=== PATIENT | male | born 1950 | race Caucasian/White ===

== ENCOUNTER → 2017-09-01 09:27 | Outpatient (REF) | payer MEDICARE, SELFPAY ==
[2017-09-01 10:33] LABS: Basophils # 0.1 K/mm3 (0-0.2); Basophils % 1.3 % (0.1-2.0); Eosinophils # 0.4 K/mm3 (0.0-0.4); Eosinophils % 7.2 % (0.1-12.0); Hematocrit 44.4 % (42.0-52.0); Hemoglobin 14.1 g/dL (14.1-18.0); Lymphocytes % 33.3 K/mm3 (10-50); Mean Corpuscular HGB Conc 31.7 g/dL (31.8-35.4); Mean Corpuscular Hemoglobin 30.3 pg (27.0-31.2); Mean Corpuscular Volume 95.6 fl (80-94); Mean Platelet Volume 7.7 fl (7.4-10.4); Monocytes # 0.4 K/mm3 (0.1-1.0); Neutrophils # 3.2 K/mm3 (1.8-7.8); Neutrophils % 52.2 % (37.0-80.0); Platelet Count 371 K/mm3 (142-424); Red Blood Count 4.65 M/mm3 (4.60-6.20); Red Cell Distribution Width 14.3 % (11.5-17.5); White Blood Count 6.1 K/mm3 (4.8-10.8)
[2017-09-01 11:00] LABS: Alanine Aminotransferase 24 U/L (12-78); Albumin Level 3.6 gm/dL (3.4-5.0); Albumin/Globulin Ratio 1.3 (1.1-1.8); Alkaline Phosphatase 86 U/L (46-116); Anion Gap 8.7 mEq/L (5-15); Aspartate Amino Transferase 14 U/L (15-37); Bilirubin,Total 0.5 mg/dL (0.2-1.0); Blood Urea Nitrogen 10 mg/dL (7-18); Calcium 9.2 mg/dL (8.5-10.1); Carbon Dioxide 32 mmol/L (21.0-32.0); Chloride 108 mmol/L (98-107); Cholesterol 153 mg/dL (140-200); Creatinine,Serum 1.05 mg/dL (0.70-1.30); Estimated Glomerular Filt Rate 71 ml/min (>60); Free T4 (Free Thyroxine) 0.81 ng/dl (0.76-1.46); GFR (African American) 86 ML/MIN (>60); Globulin 2.8 gm/dl (1.3-3.2); Glucose 110 mg/dL (74-106); HDL Cholesterol 51 mg/dL (27-67); LDL Cholesterol 86 mg/dL (0-130); Potassium 4.7 mmoL/L (3.5-5.1); Sodium 144 mmol/L (136-145); Thyroid Stimulating Hormone 2.37 uIU/ml (0.358-3.740); Total Protein,Serum 6.4 gm/dL (6.4-8.2); Triglycerides 82 mg/dL (30-200); VLDL Cholesterol 16 mg/dL (0-40)
[2017-09-02 15:23] LABS: PSA, Free 0.43 ng/mL; Prostate Specific Ag 1.9 ng/mL (0.0-4.0)
== END ==
LOC: LAB 09:27
PROVIDERS: Visit Provider Physician Assistant
DX: M06.9 Rheumatoid arthritis, unspecified (principal); E78.5 Hyperlipidemia, unspecified; K21.9 Gastro-esophageal reflux disease without esophagitis; J30.9 Allergic rhinitis, unspecified; Z79.899 Other long term (current) drug therapy
CPT/HCPCS: 80053; 80061; 84153; 84154; 84439; 84443; 85025

== ENCOUNTER → 2018-03-09 09:31 | Outpatient (CLI) | payer MEDICARE, SELFPAY ==
[2018-03-09 09:43] LABS: Basophils % 0.6 % (0.1-2.0); Eosinophils # 0.2 K/mm3 (0.0-0.4); Eosinophils % 2.4 % (0.1-12.0); Hematocrit 44.2 % (42.0-52.0); Hemoglobin 14.6 g/dL (14.1-18.0); Lymphocytes # 2.3 K/mm3 (0.7-4.5); Lymphocytes % 35.5 % (10-50); Mean Corpuscular HGB Conc 32.9 g/dL (31.8-35.4); Mean Corpuscular Hemoglobin 31.4 pg (27.0-31.2); Mean Corpuscular Volume 95.4 fl (80-94); Mean Platelet Volume 7.2 fl (7.4-10.4); Monocytes # 0.4 K/mm3 (0.1-1.0); Monocytes % 6.1 % (1.7-9.3); Neutrophils # 3.6 K/mm3 (1.8-7.8); Neutrophils % 55.3 % (37.0-80.0); Platelet Count 348 K/mm3 (142-424); Red Blood Count 4.63 M/mm3 (4.60-6.20); Red Cell Distribution Width 14.2 % (11.5-17.5); White Blood Count 6.6 K/mm3 (4.8-10.8)
[2018-03-09 10:42] LABS: Alanine Aminotransferase 29 U/L (12-78); Albumin Level 3.6 gm/dL (3.4-5.0); Albumin/Globulin Ratio 1.2 (1.1-1.8); Alkaline Phosphatase 91 U/L (46-116); Anion Gap 11.3 mEq/L (5-15); Aspartate Amino Transferase 17 U/L (15-37); Bilirubin,Total 0.6 mg/dL (0.2-1.0); Blood Urea Nitrogen 9 mg/dL (7-18); Calcium 9.2 mg/dL (8.5-10.1); Carbon Dioxide 31 mmol/L (21.0-32.0); Chloride 105 mmol/L (98-107); Chol/HDL Ratio 2.9 (1-3.5); Cholesterol 153 mg/dL (140-200); Creatinine,Serum 1.05 mg/dL (0.70-1.30); Estimated Glomerular Filt Rate 71 ml/min (>60); GFR (African American) 86 ML/MIN (>60); Globulin 2.9 gm/dl (1.3-3.2); Glucose 112 mg/dL (74-106); HDL Cholesterol 53 mg/dL (27-67); LDL Cholesterol 85 mg/dL (0-130); Potassium 4.3 mmoL/L (3.5-5.1); Sodium 143 mmol/L (136-145); T4 (Thyroxine) 6.7 ug/dl (4.7-13.3); Thyroid Stimulating Hormone 1.92 uIU/ml (0.358-3.740); Total Protein,Serum 6.5 gm/dL (6.4-8.2); Triglycerides 76 mg/dL (30-200); VLDL Cholesterol 15 mg/dL (0-40)
[2018-03-11 13:06] LABS: Prostate Specific Ag 1.9 ng/mL (0.0-4.0); Vitamin D 25 Hydroxy 32.8 ng/mL (30.0-100.0)
== END ==
PROVIDERS: Visit Provider Physician Assistant
DX: E78.5 Hyperlipidemia, unspecified (principal); K21.9 Gastro-esophageal reflux disease without esophagitis; M06.9 Rheumatoid arthritis, unspecified; Z12.5 Encounter for screening for malignant neoplasm of prostate
CPT/HCPCS: 36415; 80053; 80061; 82652; 84153; 84154; 84436; 84443; 85025

== ENCOUNTER → 2018-10-01 09:50 | Outpatient (CLI) | payer MEDICARE, SELFPAY ==
[2018-10-01 10:16] LABS: Basophils # 0.1 K/mm3 (0-0.2); Eosinophils # 0.3 K/mm3 (0.0-0.4); Eosinophils % 5.3 % (0.1-12.0); Hemoglobin 14.3 g/dL (14.1-18.0); Lymphocytes # 1.7 K/mm3 (0.7-4.5); Lymphocytes % 32.6 % (10-50); Mean Corpuscular HGB Conc 32.6 g/dL (31.8-35.4); Mean Corpuscular Hemoglobin 31.3 pg (27.0-31.2); Mean Corpuscular Volume 95.9 fl (80-94); Mean Platelet Volume 7.1 fl (7.4-10.4); Monocytes # 0.3 K/mm3 (0.1-1.0); Monocytes % 5.5 % (1.7-9.3); Neutrophils # 2.8 K/mm3 (1.8-7.8); Neutrophils % 55.6 % (37.0-80.0); Platelet Count 453 K/mm3 (142-424); Red Blood Count 4.59 M/mm3 (4.60-6.20); Red Cell Distribution Width 14.4 % (11.5-17.5); White Blood Count 5.1 K/mm3 (4.8-10.8)
[2018-10-01 11:01] LABS: Alanine Aminotransferase 33 U/L (12-78); Albumin Level 3.9 gm/dL (3.4-5.0); Albumin/Globulin Ratio 1.3 (1.1-1.8); Alkaline Phosphatase 87 U/L (46-116); Anion Gap 9.5 mEq/L (5-15); Aspartate Amino Transferase 20 U/L (15-37); Bilirubin,Total 0.9 mg/dL (0.2-1.0); Blood Urea Nitrogen 18 mg/dL (7-18); Calcium 9.4 mg/dL (8.5-10.1); Carbon Dioxide 31 mmol/L (21.0-32.0); Chloride 107 mmol/L (98-107); Chol/HDL Ratio 3.3 (1-3.5); Cholesterol 167 mg/dL (140-200); Creatinine,Serum 1.14 mg/dL (0.70-1.30); Estimated Glomerular Filt Rate 64 ml/min (>60); GFR (African American) 78 ML/MIN (>60); Globulin 2.9 gm/dl (1.3-3.2); Glucose 115 mg/dL (74-106); HDL Cholesterol 50 mg/dL (27-67); LDL Cholesterol 102 mg/dL (0-130); Potassium 4.5 mmoL/L (3.5-5.1); Prostate Specific Ag Screen 2.7 ng/mL (0.0-4.0); Sodium 143 mmol/L (136-145); Thyroid Stimulating Hormone 1.55 uIU/ml (0.358-3.740); Total Protein,Serum 6.8 gm/dL (6.4-8.2); Triglycerides 76 mg/dL (30-200); VLDL Cholesterol 15 mg/dL (0-40)
[2018-10-02 12:35] LABS: Folate >20.0 ng/mL (>3.0); Vitamin B12 590 pg/mL (232-1245); Vitamin D 25 Hydroxy 28.7 ng/mL (30.0-100.0)
== END ==
PROVIDERS: Visit Provider Physician Assistant
DX: E78.5 Hyperlipidemia, unspecified (principal); M06.9 Rheumatoid arthritis, unspecified; Z12.5 Encounter for screening for malignant neoplasm of prostate; J30.9 Allergic rhinitis, unspecified
CPT/HCPCS: 36415; 80053; 80061; 82607; 82652; 82746; 84436; 84443; 85025; G0103

== ENCOUNTER → 2019-03-16 09:36 | Outpatient (CLI) | payer MEDICARE, SELFPAY ==
[2019-03-16 10:11] LABS: Basophils # 0.1 K/mm3 (0-0.2); Basophils % 1.4 % (0.1-2.0); Eosinophils # 0.3 K/mm3 (0.0-0.4); Eosinophils % 4.8 % (0.1-12.0); Hematocrit 44.8 % (42.0-52.0); Hemoglobin 14.6 g/dL (14.1-18.0); Lymphocytes # 1.8 K/mm3 (0.7-4.5); Lymphocytes % 31.9 % (10-50); Mean Corpuscular HGB Conc 32.7 g/dL (31.8-35.4); Mean Corpuscular Hemoglobin 31.5 pg (27.0-31.2); Mean Corpuscular Volume 96.2 fl (80-94); Mean Platelet Volume 7.7 fl (7.4-10.4); Monocytes # 0.4 K/mm3 (0.1-1.0); Monocytes % 6.3 % (1.7-9.3); Neutrophils # 3.1 K/mm3 (1.8-7.8); Neutrophils % 55.6 % (37.0-80.0); Platelet Count 442 K/mm3 (142-424); Red Blood Count 4.65 M/mm3 (4.60-6.20); Red Cell Distribution Width 13.9 % (11.5-17.5); White Blood Count 5.6 K/mm3 (4.8-10.8)
[2019-03-16 11:34] LABS: Alanine Aminotransferase 27 U/L (12-78); Albumin Level 3.9 gm/dL (3.4-5.0); Albumin/Globulin Ratio 1.4 (1.1-1.8); Alkaline Phosphatase 82 U/L (46-116); Anion Gap 12.7 mEq/L (5-15); Aspartate Amino Transferase 16 U/L (15-37); Bilirubin,Total 0.8 mg/dL (0.2-1.0); Blood Urea Nitrogen 12 mg/dL (7-18); Calcium 9.7 mg/dL (8.5-10.1); Carbon Dioxide 32 mmol/L (21.0-32.0); Chloride 104 mmol/L (98-107); Chol/HDL Ratio 3.3 (1-3.5); Cholesterol 184 mg/dL (140-200); Creatinine,Serum 1.04 mg/dL (0.70-1.30); Estimated Glomerular Filt Rate 71 ml/min (>60); GFR (African American) 86 ML/MIN (>60); Globulin 2.8 gm/dl (1.3-3.2); Glucose 108 mg/dL (74-106); HDL Cholesterol 55 mg/dL (27-67); LDL Cholesterol 111 mg/dL (0-130); Potassium 4.7 mmoL/L (3.5-5.1); Sodium 144 mmol/L (136-145); T4 (Thyroxine) 2.3 ug/dl (4.7-13.3); Thyroid Stimulating Hormone 1.37 uIU/ml (0.358-3.740); Total Protein,Serum 6.7 gm/dL (6.4-8.2); Triglycerides 90 mg/dL (30-200); VLDL Cholesterol 18 mg/dL (0-40)
[2019-03-17 18:20] LABS: Vitamin D 25 Hydroxy 46.2 ng/mL (30.0-100.0)
== END ==
PROVIDERS: Visit Provider Physician Assistant
DX: E78.5 Hyperlipidemia, unspecified (principal); K21.9 Gastro-esophageal reflux disease without esophagitis; M06.9 Rheumatoid arthritis, unspecified; J30.9 Allergic rhinitis, unspecified
CPT/HCPCS: 36415; 80053; 80061; 82652; 84436; 84443; 85025

== ENCOUNTER → 2019-08-26 13:26 | Outpatient (CLI) | payer MEDICARE, SELFPAY ==
[2019-08-26 13:34] LABS: Basophils # 0.1 K/mm3 (0-0.2); Basophils % 1.1 % (0.1-2.0); Eosinophils # 0.3 K/mm3 (0.0-0.4); Eosinophils % 4.5 % (0.1-12.0); Hematocrit 42.3 % (42.0-52.0); Hemoglobin 14.8 g/dL (14.1-18.0); Lymphocytes % 32.8 % (10-50); Mean Corpuscular Hemoglobin 33.4 pg (27.0-31.2); Mean Corpuscular Volume 95.6 fl (80-94); Mean Platelet Volume 8.1 fl (7.4-10.4); Monocytes # 0.3 K/mm3 (0.1-1.0); Neutrophils # 3.4 K/mm3 (1.8-7.8); Neutrophils % 56.7 % (37.0-80.0); Platelet Count 389 K/mm3 (142-424); Red Blood Count 4.43 M/mm3 (4.60-6.20); Red Cell Distribution Width 14.1 % (11.5-17.5)
[2019-08-26 13:53] LABS: Chloride 102 mmol/L (98-107); Potassium 4.4 mmoL/L (3.5-5.1); Sodium 139 mmol/L (136-145)
[2019-08-26 13:55] LABS: Blood Urea Nitrogen 17 mg/dl (9-20); Estimated Glomerular Filt Rate 67 ml/min (>60); GFR (African American) 81 ML/MIN (>60)
[2019-08-26 13:56] LABS: Alanine Aminotransferase 28 U/L (12-78); Albumin Level 4.1 g/dl (3.5-5.0); Albumin/Globulin Ratio 1.5 (1.1-1.8); Alkaline Phosphatase 75 U/L (38-126); Anion Gap 10.4 mEq/L (5-15); Aspartate Amino Transferase 31 U/L (17-59); Bilirubin,Total 0.8 mg/dl (0.2-1.3); Carbon Dioxide 31 mmol/L (22.0-30.0); Chol/HDL Ratio 3.5 (1-3.5); Cholesterol 176 mg/dl (140-200); Globulin 2.7 g/dL (1.3-3.2); Glucose 102 mg/dl (74-100); HDL Cholesterol 50 mg/dl (40-60); Total Protein,Serum 6.8 g/dl (6.3-8.2); Triglycerides 85 mg/dl (30-150); VLDL Cholesterol 17 mg/dL (0-40)
[2019-08-26 14:08] LABS: Direct LDL Cholesterol 117.39 mg/dL (100-129)
[2019-08-26 14:14] LABS: T4 (Thyroxine) 7.5 ug/dl (5.53-11.0)
[2019-08-26 14:28] LABS: Thyroid Stimulating Hormone 1.51 uIU/mL (0.465-4.68)
[2019-08-31 16:29] LABS: 1,25 Dihydroxy Vitamin D 64 pg/mL (.); 1,25-Dihydroxy, Vitamin D-2 <10 pg/mL (.); 1,25-Dihydroxy, Vitamin D-3 62 pg/mL (.)
== END ==
PROVIDERS: Visit Provider Physician Assistant
DX: E78.5 Hyperlipidemia, unspecified (principal)
CPT/HCPCS: 80053; 80061; 82652; 84436; 84443; 85025

== ENCOUNTER → 2019-10-11 17:22 | Outpatient (CLI) | payer MEDICARE, SELFPAY ==
[2019-10-11 18:09] LABS: Basophils # 0.1 K/mm3 (0-0.2); Basophils % 1.1 % (0.1-2.0); Eosinophils # 0.2 K/mm3 (0.0-0.4); Eosinophils % 3.1 % (0.1-12.0); Hematocrit 39.4 % (42.0-52.0); Hemoglobin 14.1 g/dL (14.1-18.0); Lymphocytes # 1.8 K/mm3 (0.7-4.5); Lymphocytes % 27.3 % (10-50); Mean Corpuscular HGB Conc 35.6 g/dL (31.8-35.4); Mean Corpuscular Hemoglobin 33.8 pg (27.0-31.2); Mean Platelet Volume 8.3 fl (7.4-10.4); Monocytes # 0.4 K/mm3 (0.1-1.0); Monocytes % 6.6 % (1.7-9.3); Platelet Count 369 K/mm3 (142-424); Red Blood Count 4.15 M/mm3 (4.60-6.20); Red Cell Distribution Width 14.3 % (11.5-17.5); White Blood Count 6.5 K/mm3 (4.8-10.8)
[2019-10-11 18:11] LABS: Chloride 103 mmol/L (98-107); Potassium 4.1 mmoL/L (3.5-5.1); Sodium 140 mmol/L (136-145)
[2019-10-11 18:14] LABS: Alanine Aminotransferase 18 U/L (12-78); Albumin Level 3.9 g/dl (3.5-5.0); Albumin/Globulin Ratio 1.6 (1.1-1.8); Alkaline Phosphatase 70 U/L (38-126); Anion Gap 11.1 mEq/L (5-15); Aspartate Amino Transferase 27 U/L (17-59); Bilirubin,Total 0.5 mg/dl (0.2-1.3); Blood Urea Nitrogen 11 mg/dl (9-20); Calcium 9.6 mg/dl (8.4-10.2); Carbon Dioxide 30 mmol/L (22.0-30.0); Estimated Glomerular Filt Rate 75 ml/min (>60); GFR (African American) 90 ML/MIN (>60); Globulin 2.5 g/dL (1.3-3.2); Glucose 97 mg/dl (74-100); Total Protein,Serum 6.4 g/dl (6.3-8.2)
[2019-10-11 18:30] LABS: 25-OH Vitamin D, Total 53.6 ng/mL (30-100)
[2019-10-11 18:44] LABS: Thyroid Stimulating Hormone 1.54 uIU/mL (0.465-4.68)
[2019-10-12 15:48] LABS: Iron 66 ug/dL (49-181)
[2019-10-12 15:58] LABS: Total Iron Binding Capacity 343 ug/dL (261-462)
[2019-10-12 16:25] LABS: Ferritin 44.1 ng/ml (17.9-464)
== END ==
PROVIDERS: Visit Provider Physician Assistant
DX: I10 Essential (primary) hypertension (principal); R53.83 Other fatigue; R68.82 Decreased libido; E55.9 Vitamin D deficiency, unspecified; D64.9 Anemia, unspecified
CPT/HCPCS: 80053; 82306; 82728; 83540; 83550; 84403; 84443; 85025

== ENCOUNTER → 2019-11-02 12:59 | Outpatient (CLI) | payer MEDICARE, SELFPAY | PROVIDERS: PCP Physician Assistant; Visit Provider Physician Assistant | DX: G47.33 Obstructive sleep apnea (adult) (pediatric) (principal); G47.10 Hypersomnia, unspecified | CPT/HCPCS: G0399 ==

== ENCOUNTER → 2020-03-21 14:29 | Outpatient (CLI) | payer MEDICARE, SELFPAY ==
[2020-03-21 15:27] LABS: Basophils % 0.7 % (0.1-2.0); Eosinophils # 0.4 K/mm3 (0.0-0.4); Eosinophils % 5.7 % (0.1-12.0); Hematocrit 45.4 % (42.0-52.0); Hemoglobin 14.9 g/dL (14.1-18.0); Lymphocytes # 1.7 K/mm3 (0.7-4.5); Lymphocytes % 26.7 % (10-50); Mean Corpuscular HGB Conc 32.7 g/dL (31.8-35.4); Mean Corpuscular Hemoglobin 31.3 pg (27.0-31.2); Mean Corpuscular Volume 95.7 fl (80-94); Mean Platelet Volume 8.6 fl (7.4-10.4); Monocytes # 0.4 K/mm3 (0.1-1.0); Monocytes % 5.9 % (1.7-9.3); Neutrophils # 3.8 K/mm3 (1.8-7.8); Neutrophils % 60.9 % (37.0-80.0); Platelet Count 443 K/mm3 (142-424); Red Blood Count 4.75 M/mm3 (4.60-6.20); Red Cell Distribution Width 14.9 % (11.5-17.5); White Blood Count 6.3 K/mm3 (4.8-10.8)
[2020-03-21 15:33] LABS: Anion Gap 12.9 mEq/L (5-15); Blood Urea Nitrogen 11 mg/dl (9-20); Carbon Dioxide 32 mmol/L (22.0-30.0); Chloride 101 mmol/L (98-107); Estimated Glomerular Filt Rate 67 ml/min (>60); Potassium 4.9 mmoL/L (3.5-5.1); Sodium 141 mmol/L (136-145)
[2020-03-21 15:34] LABS: Alanine Aminotransferase 22 U/L (12-78); Albumin Level 4.3 g/dl (3.5-5.0); Albumin/Globulin Ratio 1.5 (1.1-1.8); Alkaline Phosphatase 101 U/L (38-126); Aspartate Amino Transferase 28 U/L (17-59); Bilirubin,Total 0.7 mg/dl (0.2-1.3); Calcium 9.9 mg/dl (8.4-10.2); Chol/HDL Ratio 3.5 (1-3.5); Cholesterol 188 mg/dl (140-200); GFR (African American) 81 ML/MIN (>60); Globulin 2.9 g/dL (1.3-3.2); Glucose 108 mg/dl (74-100); HDL Cholesterol 54 mg/dl (40-60); Total Protein,Serum 7.2 g/dl (6.3-8.2); Triglycerides 128 mg/dl (30-150); VLDL Cholesterol 26 mg/dL (0-40)
[2020-03-21 15:45] LABS: Direct LDL Cholesterol 109.33 mg/dL (100-129)
[2020-03-21 15:48] LABS: Free T4 (Free Thyroxine) 1.07 ng/dl (0.78-2.19)
[2020-03-21 16:08] LABS: Thyroid Stimulating Hormone 1.96 uIU/mL (0.465-4.68)
== END ==
PROVIDERS: Visit Provider Physician Assistant
DX: E78.5 Hyperlipidemia, unspecified (principal); G47.00 Insomnia, unspecified; M06.9 Rheumatoid arthritis, unspecified; R53.83 Other fatigue; I10 Essential (primary) hypertension; Z12.5 Encounter for screening for malignant neoplasm of prostate
CPT/HCPCS: 80053; 80061; 84439; 84443; 85025; G0103

== ENCOUNTER → 2020-09-18 13:57 | Outpatient (CLI) | payer MEDICARE, SELFPAY ==
[2020-09-18 14:18] LABS: Alanine Aminotransferase 22 U/L (12-78); Albumin/Globulin Ratio 1.7 (1.1-1.8); Alkaline Phosphatase 89 U/L (38-126); Anion Gap 9.3 mEq/L (5-15); Aspartate Amino Transferase 28 U/L (17-59); Bilirubin,Total 0.7 mg/dl (0.2-1.3); Blood Urea Nitrogen 14 mg/dl (9-20); Calcium 9.3 mg/dl (8.4-10.2); Carbon Dioxide 31 mmol/L (22.0-30.0); Chloride 104 mmol/L (98-107); Chol/HDL Ratio 3.4 (1-3.5); Cholesterol 172 mg/dl (140-200); Estimated Glomerular Filt Rate 67 ml/min (>60); GFR (African American) 81 ML/MIN (>60); Globulin 2.4 g/dL (1.3-3.2); Glucose 103 mg/dl (74-100); HDL Cholesterol 50 mg/dl (40-60); Potassium 4.3 mmoL/L (3.5-5.1); Sodium 140 mmol/L (136-145); Total Protein,Serum 6.4 g/dl (6.3-8.2); Triglycerides 102 mg/dl (30-150); VLDL Cholesterol 20 mg/dL (0-40)
[2020-09-18 14:29] LABS: Direct LDL Cholesterol 100.63 mg/dL (100-129)
[2020-09-18 14:42] LABS: Basophils # 0.1 K/mm3 (0-0.2); Basophils % 0.8 % (0.1-2.0); Eosinophils # 0.2 K/mm3 (0.0-0.4); Eosinophils % 3.7 % (0.1-12.0); Hematocrit 42.1 % (42.0-52.0); Hemoglobin 13.5 g/dL (14.1-18.0); Lymphocytes # 1.8 K/mm3 (0.7-4.5); Mean Corpuscular HGB Conc 32.1 g/dL (31.8-35.4); Mean Corpuscular Hemoglobin 30.5 pg (27.0-31.2); Mean Corpuscular Volume 94.9 fl (80-94); Mean Platelet Volume 8.2 fl (7.4-10.4); Monocytes # 0.5 K/mm3 (0.1-1.0); Monocytes % 7.8 % (1.7-9.3); Neutrophils # 3.9 K/mm3 (1.8-7.8); Neutrophils % 60.8 % (37.0-80.0); Platelet Count 399 K/mm3 (142-424); Red Blood Count 4.43 M/mm3 (4.60-6.20); Red Cell Distribution Width 14.3 % (11.5-17.5); White Blood Count 6.5 K/mm3 (4.8-10.8)
[2020-09-18 14:49] LABS: Thyroid Stimulating Hormone 1.58 uIU/mL (0.465-4.68)
[2020-09-18 15:01] LABS: Free T4 (Free Thyroxine) 0.81 ng/dl (0.78-2.19)
[2020-09-18 15:02] LABS: 25-OH Vitamin D, Total 34.6 ng/mL (30-100)
[2020-09-18 15:07] LABS: Vitamin B12 396 pg/mL (239-931)
== END ==
PROVIDERS: Visit Provider Physician Assistant
DX: E55.9 Vitamin D deficiency, unspecified (principal); E78.5 Hyperlipidemia, unspecified; M06.9 Rheumatoid arthritis, unspecified; G47.00 Insomnia, unspecified; I10 Essential (primary) hypertension
CPT/HCPCS: 80053; 80061; 82306; 82607; 84439; 84443; 85025

== ENCOUNTER 2020-11-25 15:16 | Emergency (ER) | payer MEDICARE, SELFPAY ==
[2020-11-25 15:45] VITALS: BP 145/80; PULSE 86; RESP 24; TEMP 37.3; O2SAT 100; BMI 20.9
--- NOTE | 2020-11-25 16:16 | HMH.EDUTC ---
[facility] [place] Disposition Clinical Impression: Close exposure to COVID-19 virus Nausea & vomiting Qualifiers: Vomiting type: unspecified Vomiting Intractability: non-intractable Qualified Code(s): R11.2 - Nausea with vomiting, unspecified Diarrhea Qualifiers: Diarrhea type: unspecified type Qualified Code(s): R19.7 - Diarrhea, unspecified Disposition: Home, Self-Care Condition on Discharge: Good Instructions: COVID-19: Testing and Tracing, Nausea and Vomiting-Adult, Diarrhea Additional Instructions: covid swab was sent to lab, call later today for results. self isolate until test results are known to be negative No sign of a bacterial infection. Likely viral. Viruses can take 7-14 days to run their course. Nasal saline and bulb syringe or nose Ngoc to remove nasal drainage to help with nasal congestion. Hard to eat, drink, sleep with nasal congestion so important to keep this cleaned out. Monitor temp. Tylenol or Motrin as needed for pain or fever Encourage fluids, water, Gatorade, Powerade, Pedialyte if infant/toddler/child Warm salt water gargles Warm fluids Sore throat lozenges Sleep elevated Humidifier/vaporizer Follow-up immediately for new or worsening symptoms or no noticeable improvement over the next 48-72 hours. n/v/d Monitor temperature. Seek treatment if fever develops. Follow-up immediately if new or worse symptoms worsen or no noticeable improvement over 48 hours. Increase fluids such as water, Gatorade, Powerade, juice or Pedialyte with limited formula/dietary in children No food is okay as long as you are drinking. Once ready to eat start bland such as bananas, rice, applesauce, toast. Contagious until no diarrhea, vomiting, fever times 48 hours without medication Avoid antidiarrheals unless told otherwise. Best to let the virus run its course. Follow-up immediately for new or worsening symptoms or no noticeable improvement over the next 48 hours. Prescriptions: ondansetron HCL [Zofran 4mg Tab*] 4 mg PO Q8 PRN 3 Days #14 tab PRN Reason: Nausea Prescription Printed Referrals: Ashleigh Hicks PA [Primary Care Provider] - Time of Disposition: 16:21 (pt does not want a shot) Medical Decision Making - Kumar Inquiry Pt receiving controlled substance: No Vital Signs: 11/25/20 15:45 Temperature 99.2 F Temperature Source Oral Pulse Rate [Right Brachial] 86 Respiratory Rate 24 Blood Pressure [Right Arm] 145/80 H Blood Pressure Mean [Right Arm] 101 Blood Pressure Source [Right Arm] Automatic Cuff Blood Pressure Position [Right Arm] Sitting 02 Sat by Pulse Oximetry 100 Oxygen Delivery Method Room Air Orders (Tests/Meds): ORDERS Category Date Time Status Covid-19 Nasal PCR ([facility]) Routine Lab 11/25/20 14:00 Received Medical Decision Narrative: pt states he is not interested in antibody infusion [facility] [place] HPI - General Chief complaint: [facility] Stated complaint: covid test, weak,LAINEZ,V?D no smell Time Seen by Provider: 11/25/20 16:16 Mode of Arrival: Ambulatory Source of Information: Patient Limitations: No Limitations Description of Symptoms (Recalled from Triage Doc. by RN): PATIENT C/O VOMITING, NAUSEA, AND DIARRHEA SINCE LAST NIGHT. DIAGNOSED WITH COVID LAST WEEK HEENT Symptoms (Recalled from RN notes): No Resp Symptoms (Recalled from RN notes): No Skin Symptoms (Recalled from RN notes): No MS Symptoms (Recalled from RN notes): No Functional Status (Recalled from RN notes): WNL - History of Present Illness Provider Complaint: 70 yr old male presents for nausea,vomiting, loss of smell and fever. pt states his tested positive for covid last week. - Related Data Previous Rx's Medication Instructions Recorded pantoprazole 40 mg tablet,delayed See Rx Instructions .ROUTE 06/09/20 release .COMPLEX #90 tab losartan 50 mg-hydrochlorothiazide See Rx Instructions .ROUTE 07/05/20 12.5 mg tablet .COMPLEX #90 tab aspirin 81 mg tablet,delayed 81 mg PO QD
[2020-11-25 16:23] VITALS: BP 145/80; PULSE 86; RESP 24; TEMP 37.3; O2SAT 100
== END 2020-11-25 16:30 | disposition home or self-care (01) ==
PROVIDERS: Emergency Provider Nurse Practitioner Family; PCP Physician Assistant
DX: U07.1 COVID-19 (principal); K21.9 Gastro-esophageal reflux disease without esophagitis; I10 Essential (primary) hypertension; E78.5 Hyperlipidemia, unspecified; Z79.899 Other long term (current) drug therapy
CPT/HCPCS: 99202; C9803; G0463; U0003; U0005

== ENCOUNTER → 2021-03-21 10:57 | Outpatient (CLI) | payer MEDICARE, SELFPAY ==
[2021-03-21 11:19] LABS: Basophils # 0.1 K/mm3 (0-0.2); Basophils % 1.4 % (0.1-2.0); Eosinophils # 0.4 K/mm3 (0.0-0.4); Eosinophils % 4.9 % (0.1-12.0); Hematocrit 47.5 % (42.0-52.0); Hemoglobin 15.7 g/dL (14.1-18.0); Lymphocytes # 1.9 K/mm3 (0.7-4.5); Lymphocytes % 26.5 % (10-50); Mean Corpuscular Hemoglobin 31.6 pg (27.0-31.2); Mean Corpuscular Volume 95.5 fl (80-94); Monocytes # 0.5 K/mm3 (0.1-1.0); Monocytes % 6.2 % (1.7-9.3); Neutrophils # 4.5 K/mm3 (1.8-7.8); Neutrophils % 61.1 % (37.0-80.0); Platelet Count 416 K/mm3 (142-424); Red Blood Count 4.97 M/mm3 (4.60-6.20); White Blood Count 7.3 K/mm3 (4.8-10.8)
[2021-03-21 12:32] LABS: Alanine Aminotransferase 24 U/L (12-78); Albumin Level 4.3 g/dl (3.5-5.0); Albumin/Globulin Ratio 1.9 (1.1-1.8); Alkaline Phosphatase 92 U/L (38-126); Anion Gap 7.6 mEq/L (5-15); Aspartate Amino Transferase 36 U/L (17-59); Bilirubin,Total 0.6 mg/dl (0.2-1.3); Blood Urea Nitrogen 13 mg/dl (9-20); Calcium 9.8 mg/dl (8.4-10.2); Carbon Dioxide 33 mmol/L (22.0-30.0); Chloride 103 mmol/L (98-107); Chol/HDL Ratio 4.2 (1-3.5); Cholesterol 176 mg/dl (140-200); Estimated Glomerular Filt Rate 67 ml/min (>60); GFR (African American) 81 ML/MIN (>60); Globulin 2.3 g/dL (1.3-3.2); Glucose 105 mg/dl (74-100); HDL Cholesterol 42 mg/dl (40-60); Potassium 4.6 mmoL/L (3.5-5.1); Sodium 139 mmol/L (136-145); Total Protein,Serum 6.6 g/dl (6.3-8.2); Triglycerides 132 mg/dl (30-150); VLDL Cholesterol 26 mg/dL (0-40)
[2021-03-21 12:45] LABS: Direct LDL Cholesterol 118.36 mg/dL (100-129)
[2021-03-21 12:50] LABS: 25-OH Vitamin D, Total 45.2 ng/mL (30-100)
[2021-03-21 13:39] LABS: Vitamin B12 462 pg/mL (239-931)
[2021-03-21 14:24] LABS: Folate > 20.00 ng/mL
== END ==
PROVIDERS: PCP Physician Assistant; Visit Provider Physician Assistant
DX: M06.9 Rheumatoid arthritis, unspecified (principal); R11.2 Nausea with vomiting, unspecified; R19.7 Diarrhea, unspecified; I10 Essential (primary) hypertension; E55.9 Vitamin D deficiency, unspecified
CPT/HCPCS: 36415; 80053; 80061; 82306; 82607; 82746; 84443; 85025

== ENCOUNTER → 2021-09-26 13:28 | Outpatient (CLI) | payer MEDICARE, SELFPAY ==
[2021-09-26 13:00] LABS: Basophils # 0.1 K/mm3 (0-0.2); Basophils % 1.3 % (0.1-2.0); Eosinophils # 0.5 K/mm3 (0.0-0.4); Eosinophils % 7.4 % (0.1-12.0); Hematocrit 44.6 % (42.0-52.0); Hemoglobin 13.9 g/dL (14.1-18.0); Lymphocytes # 1.8 K/mm3 (0.7-4.5); Lymphocytes % 25.5 % (10-50); Mean Corpuscular HGB Conc 31.2 g/dL (31.8-35.4); Mean Corpuscular Hemoglobin 31.5 pg (27.0-31.2); Mean Platelet Volume 9.1 fl (7.4-10.4); Monocytes # 0.5 K/mm3 (0.1-1.0); Monocytes % 6.6 % (1.7-9.3); Neutrophils # 4.1 K/mm3 (1.8-7.8); Neutrophils % 59.2 % (37.0-80.0); Platelet Count 454 K/mm3 (142-424); Red Blood Count 4.42 M/mm3 (4.60-6.20); Red Cell Distribution Width 14.8 % (11.5-17.5)
[2021-09-26 13:04] LABS: Alanine Aminotransferase 25 U/L (12-78); Albumin Level 4.1 g/dl (3.5-5.0); Albumin/Globulin Ratio 1.6 (1.1-1.8); Alkaline Phosphatase 98 U/L (38-126); Aspartate Amino Transferase 31 U/L (17-59); Bilirubin,Total 0.8 mg/dl (0.2-1.3); Blood Urea Nitrogen 17 mg/dl (9-20); Calcium 9.3 mg/dl (8.4-10.2); Carbon Dioxide 30 mmol/L (22.0-30.0); Chloride 106 mmol/L (98-107); Chol/HDL Ratio 3.7 (1-3.5); Cholesterol 183 mg/dl (140-200); Estimated Glomerular Filt Rate 74 ml/min (>60); GFR (African American) 90 ML/MIN (>60); Globulin 2.5 g/dL (1.3-3.2); Glucose 116 mg/dl (74-100); HDL Cholesterol 50 mg/dl (40-60); Sodium 140 mmol/L (136-145); Total Protein,Serum 6.6 g/dl (6.3-8.2); Triglycerides 102 mg/dl (30-150); VLDL Cholesterol 20 mg/dL (0-40)
[2021-09-26 13:15] LABS: Direct LDL Cholesterol 105.85 mg/dL (100-129)
[2021-09-26 13:34] LABS: Thyroid Stimulating Hormone 1.16 uIU/mL (0.465-4.68)
[2021-09-26 17:45] LABS: Vitamin B12 316 pg/mL (239-931)
[2021-09-26 17:50] LABS: Folate > 20.00 ng/mL
== END ==
PROVIDERS: PCP Physician Assistant; Visit Provider Physician Assistant
DX: I10 Essential (primary) hypertension (principal); E53.8 Deficiency of other specified B group vitamins; Z79.899 Other long term (current) drug therapy
CPT/HCPCS: 80053; 80061; 82607; 82746; 84443; 85025

== ENCOUNTER 2021-10-04 18:01 | Emergency (ER) | payer MEDICARE, SELFPAY ==
[2021-10-04 18:25] VITALS: BP 148/79; PULSE 73; RESP 18; TEMP 36.6; O2SAT 100; BMI 19.6
--- NOTE | 2021-10-04 18:58 | HMH.EDUTC ---
[facility] [place] Clinical Impression: Corneal abrasion Qualifiers: Encounter type: initial encounter Laterality: right Qualified Code(s): S05.01XA - Injury of conjunctiva and corneal abrasion without foreign body, right eye, initial encounter Disposition: Home, Self-Care Condition on Discharge: Good Instructions: DI for Corneal Abrasion, Corneal Abrasion, Erythromycin Ophthalmic Additional Instructions: Follow up with your Eye Doctor in the morning for further evaluation Use ointment ever 4hrs in right eye as instructed in the [facility] Return if needed Straight to ER if any life threatening symptoms Referrals: Ashleigh Hicks PA [Primary Care Provider] - As needed Time of Disposition: 20:07 Medical Decision Making - Kumar Inquiry Pt receiving controlled substance: No Kumar was queried for this patient: No Vital Signs: 10/04/21 18:25 10/04/21 19:42 Temperature 97.8 F 97.8 F Temperature Source Oral Pulse Rate 73 Pulse Rate [Left Brachial] 73 Respiratory Rate 18 18 Blood Pressure 148/79 H Blood Pressure [Left Arm] 148/79 H Blood Pressure Mean [Left Arm] 102 Blood Pressure Source [Left Arm] Automatic Cuff 02 Sat by Pulse Oximetry 100 Oxygen Delivery Method Room Air Orders (Tests/Meds): ED MEDICATIONS Discontinued Medications Generic Name Dose Route Start Last Admin Trade Name Freq PRN Reason Stop Dose Admin Erythromycin 1 gm 10/04/21 20:02 10/04/21 20:03 Erythromycin Base 1 Gm Oint...G. OP 10/04/21 20:03 1 gm ONCE ONE Administration Fluorescein Sodium 1 mg 10/04/21 20:02 10/04/21 20:03 Fluorescein Sodium 1mg Strip OP 10/04/21 20:03 1 mg ONCE ONE Administration Tetracaine HCl 0 ml 10/04/21 20:02 10/04/21 20:03 Tetracaine 0.5% Opth Essence 15ml OP 10/04/21 20:03 2 drp ONCE ONE Administration Medical Decision Narrative: spoke with Dr Mondragon and he advised to place erythromycin ointment, patch eye and have him follow up in the morning if no improvement [facility] [place] - General Stated complaint: AO 10/04 SOMETHING IN R EYE Time Seen by Provider: 10/04/21 18:58 Mode of Arrival: Ambulatory Source of Information: Patient Limitations: No Limitations Description of Symptoms (Recalled from Triage Doc. by RN): PATIENT C/O RIGHT EYE IRRITATION. HE STATES WHILE HE WAS TRIMMING TREES THIS MORNING SOMETHING FLEW INTO HIS EYE HEENT Symptoms (Recalled from RN notes): Yes Resp Symptoms (Recalled from RN notes): No Skin Symptoms (Recalled from RN notes): No MS Symptoms (Recalled from RN notes): No Functional Status (Recalled from RN notes): WNL - History of Present Illness Provider Complaint: Patient states that he was cutting a tree this morning when he felt like something flew into his right eye States that when he blinks or turns his eye certain ways he feels like there is something still in his eye and has been having pain and burning in eye Denies loss of vision - Related Data Previous Rx's Medication Instructions Recorded aspirin 81 mg tablet,delayed 81 mg PO QDAY #90 tab 03/21/21 release ezetimibe 10 mg-simvastatin 10 mg See Rx Instructions .ROUTE 03/21/21 tablet .COMPLEX #90 tab fluticasone propionate 50 50 mcg INTRANASAL QDAY PRN #9.9 g 03/21/21 mcg/actuation nasal spray,suspension folic acid 1 mg tablet See Rx Instructions .ROUTE 03/21/21 .COMPLEX #90 tab losartan 50 mg-hydrochlorothiazide See Rx Instructions .ROUTE 03/21/21 12.5 mg tablet .COMPLEX #90 tab meloxicam 15 mg tablet See Rx Instructions .ROUTE 03/21/21 .COMPLEX #90 tab methotrexate sodium 2.5 mg tablet See Rx Instructions .ROUTE 03/21/21 .COMPLEX #60 tab boqeghdk-kdi-mnbql acid 0.4 1 tab PO QAM #30 tab 03/21/21 mg-lycopene 300 mcg-lutein 250 mcg tablet pantoprazole 40 mg tablet,delayed See Rx Instructions .ROUTE 03/21/21 release .COMPLEX #90 tab sildenafil 100 mg tablet 100 mg PO DAILY PRN #10 tab 03/21/21 cyanocobalamin (vitamin B-12) 5,000 mcg PO DAILY #90 tab 09/27/21 5
[2021-10-04 19:42] VITALS: BP 148/79; PULSE 73; RESP 18; TEMP 36.6; O2SAT 100
== END 2021-10-04 20:10 | disposition home or self-care (01) ==
PROVIDERS: Emergency Provider Nurse Practitioner; PCP Physician Assistant
DX: S05.01XA Injury of conjunctiva and corneal abrasion without foreign body, right eye, initial encounter (principal); Y93.H2 Activity, gardening and landscaping; Z88.1 Allergy status to other antibiotic agents; Z88.8 Allergy status to other drugs, medicaments and biological substances; K21.9 Gastro-esophageal reflux disease without esophagitis; E78.5 Hyperlipidemia, unspecified; I10 Essential (primary) hypertension; M19.90 Unspecified osteoarthritis, unspecified site; Z83.3 Family history of diabetes mellitus; Z80.9 Family history of malignant neoplasm, unspecified
CPT/HCPCS: 99212; G0463

== ENCOUNTER → 2022-04-03 08:58 | Outpatient (CLI) | payer MEDICARE, SELFPAY ==
[2022-04-03 10:09] LABS: Basophils # 0.1 K/mm3 (0-0.2); Basophils % 1.2 % (0.1-2.0); Eosinophils # 0.6 K/mm3 (0.0-0.4); Eosinophils % 7.8 % (0.1-12.0); Hematocrit 45.4 % (42.0-52.0); Hemoglobin 14.9 g/dL (14.1-18.0); Lymphocytes # 2.3 K/mm3 (0.7-4.5); Lymphocytes % 27.5 % (10-50); Mean Corpuscular Hemoglobin 31.1 pg (27.0-31.2); Mean Corpuscular Volume 94.5 fl (80-94); Monocytes # 0.5 K/mm3 (0.1-1.0); Monocytes % 6.6 % (1.7-9.3); Neutrophils # 4.7 K/mm3 (1.8-7.8); Neutrophils % 56.9 % (37.0-80.0); Platelet Count 521 K/mm3 (142-424); Red Cell Distribution Width 14.1 % (11.5-17.5); White Blood Count 8.2 K/mm3 (4.8-10.8)
[2022-04-03 11:22] LABS: Alanine Aminotransferase 34 U/L (12-78); Albumin Level 4.1 g/dl (3.5-5.0); Albumin/Globulin Ratio 1.7 (1.1-1.8); Alkaline Phosphatase 90 U/L (38-126); Anion Gap 9.5 mEq/L (5-15); Aspartate Amino Transferase 40 U/L (17-59); Bilirubin,Total 0.8 mg/dl (0.2-1.3); Blood Urea Nitrogen 13 mg/dl (9-20); Calcium 9.3 mg/dl (8.4-10.2); Carbon Dioxide 33 mmol/L (22.0-30.0); Chloride 103 mmol/L (98-107); Chol/HDL Ratio 3.7 (1-3.5); Cholesterol 168 mg/dl (140-200); Estimated Glomerular Filt Rate 66 ml/min (>60); GFR (African American) 80 ML/MIN (>60); Globulin 2.4 g/dL (1.3-3.2); Glucose 113 mg/dl (74-100); HDL Cholesterol 46 mg/dl (40-60); Potassium 4.5 mmoL/L (3.5-5.1); Sodium 141 mmol/L (136-145); Total Protein,Serum 6.5 g/dl (6.3-8.2); Triglycerides 113 mg/dl (30-150); VLDL Cholesterol 23 mg/dL (0-40)
[2022-04-03 11:33] LABS: Direct LDL Cholesterol 100.93 mg/dL (100-129)
[2022-04-03 11:52] LABS: Prostate Specific Ag Screen 3.4 ng/ml (0.0-4.0); Thyroid Stimulating Hormone 1.45 uIU/mL (0.465-4.68)
[2022-04-03 12:10] LABS: Vitamin B12 772 pg/mL (239-931)
[2022-04-06 11:21] LABS: Peripheral Smear Review Scanned Result
== END ==
PROVIDERS: PCP Physician Assistant; Visit Provider Physician Assistant
DX: I10 Essential (primary) hypertension (principal); M05.79 Rheumatoid arthritis with rheumatoid factor of multiple sites without organ or systems involvement; E78.5 Hyperlipidemia, unspecified; Z12.5 Encounter for screening for malignant neoplasm of prostate; E53.8 Deficiency of other specified B group vitamins
CPT/HCPCS: 36415; 80053; 80061; 82607; 84443; 85025; G0103

== ENCOUNTER → 2022-10-07 08:51 | Outpatient (CLI) | payer MEDICARE, SELFPAY ==
[2022-10-07 10:01] LABS: Basophils # 0.1 K/mm3 (0-0.2); Basophils % 1.2 % (0.1-2.0); Eosinophils # 0.5 K/mm3 (0.0-0.4); Eosinophils % 8.9 % (0.1-12.0); Hematocrit 45.9 % (42.0-52.0); Hemoglobin 14.8 g/dL (14.1-18.0); Lymphocytes # 1.7 K/mm3 (0.7-4.5); Lymphocytes % 28.8 % (10-50); Mean Corpuscular HGB Conc 32.3 g/dL (31.8-35.4); Mean Corpuscular Hemoglobin 30.7 pg (27.0-31.2); Mean Corpuscular Volume 94.9 fl (80-94); Mean Platelet Volume 8.2 fl (7.4-10.4); Monocytes # 0.4 K/mm3 (0.1-1.0); Monocytes % 7.1 % (1.7-9.3); Neutrophils # 3.1 K/mm3 (1.8-7.8); Platelet Count 361 K/mm3 (142-424); Red Blood Count 4.84 M/mm3 (4.60-6.20); Red Cell Distribution Width 14.4 % (11.5-17.5); White Blood Count 5.8 K/mm3 (4.8-10.8)
[2022-10-07 10:33] LABS: Alanine Aminotransferase 22 U/L (12-78); Albumin Level 4.1 g/dl (3.5-5.0); Albumin/Globulin Ratio 1.6 (1.1-1.8); Alkaline Phosphatase 86 U/L (38-126); Anion Gap 9.4 mEq/L (5-15); Aspartate Amino Transferase 24 U/L (17-59); Bilirubin,Total 0.5 mg/dl (0.2-1.3); Blood Urea Nitrogen 14 mg/dl (9-20); Calcium 9.4 mg/dl (8.4-10.2); Carbon Dioxide 28 mmol/L (22.0-30.0); Chloride 107 mmol/L (98-107); Chol/HDL Ratio 3.3 (1-3.5); Cholesterol 170 mg/dl (140-200); Estimated Glomerular Filt Rate 60 ml/min (>60); GFR (African American) 72 ML/MIN (>60); Globulin 2.5 g/dL (1.3-3.2); Glucose 107 mg/dl (74-100); HDL Cholesterol 51 mg/dl (40-60); Potassium 4.4 mmoL/L (3.5-5.1); Sodium 140 mmol/L (136-145); Total Protein,Serum 6.6 g/dl (6.3-8.2); Triglycerides 91 mg/dl (30-150); VLDL Cholesterol 18 mg/dL (0-40)
[2022-10-07 10:44] LABS: Direct LDL Cholesterol 98.14 mg/dL (100-129)
[2022-10-07 10:55] LABS: 25-OH Vitamin D, Total 43.1 ng/mL (30-100)
[2022-10-07 11:10] LABS: Thyroid Stimulating Hormone 1.85 uIU/mL (0.465-4.68)
== END ==
PROVIDERS: PCP Physician Assistant; Visit Provider Physician Assistant
DX: I10 Essential (primary) hypertension (principal); K21.9 Gastro-esophageal reflux disease without esophagitis; E78.5 Hyperlipidemia, unspecified; M06.9 Rheumatoid arthritis, unspecified; Z79.899 Other long term (current) drug therapy
CPT/HCPCS: 36415; 80053; 80061; 82306; 84443; 85025

== ENCOUNTER 2023-04-22 10:14 | Outpatient (CLI) | payer MEDICARE, SELFPAY ==
[2023-04-22 10:37] LABS: Basophils % 0.7 % (0.1-2.0); Eosinophils # 0.7 K/mm3 (0.0-0.4); Eosinophils % 10.7 % (0.1-12.0); Hemoglobin 15.1 g/dL (14.1-18.0); Lymphocytes % 31.5 % (10-50); Mean Corpuscular HGB Conc 33.7 g/dL (31.8-35.4); Mean Corpuscular Hemoglobin 33.2 pg (27.0-31.2); Mean Corpuscular Volume 98.6 fl (80-94); Mean Platelet Volume 7.7 fl (7.4-10.4); Monocytes # 0.4 K/mm3 (0.1-1.0); Monocytes % 7.1 % (1.7-9.3); Neutrophils # 3.1 K/mm3 (1.8-7.8); Platelet Count 346 K/mm3 (142-424); Red Blood Count 4.56 M/mm3 (4.60-6.20); Red Cell Distribution Width 14.2 % (11.5-17.5); White Blood Count 6.2 K/mm3 (4.8-10.8)
[2023-04-22 11:02] LABS: Alanine Aminotransferase 24 U/L (12-78); Albumin Level 3.8 g/dl (3.5-5.0); Albumin/Globulin Ratio 1.7 (1.1-1.8); Alkaline Phosphatase 83 U/L (38-126); Aspartate Amino Transferase 26 U/L (17-59); Bilirubin,Total 0.7 mg/dl (0.2-1.3); Blood Urea Nitrogen 7 mg/dl (9-20); Calcium 9.5 mg/dl (8.4-10.2); Carbon Dioxide 33 mmol/L (22.0-30.0); Chloride 105 mmol/L (98-107); Chol/HDL Ratio 3.5 (1-3.5); Cholesterol 176 mg/dl (140-200); Estimated Glomerular Filt Rate 66 ml/min (>60); GFR (African American) 80 ML/MIN (>60); Globulin 2.2 g/dL (1.3-3.2); Glucose 105 mg/dl (74-100); HDL Cholesterol 50 mg/dl (40-60); Sodium 139 mmol/L (136-145); Triglycerides 73 mg/dl (30-150); VLDL Cholesterol 15 mg/dL (0-40)
[2023-04-22 11:13] LABS: Direct LDL Cholesterol 95.15 mg/dL (100-129)
[2023-04-22 11:21] LABS: 25-OH Vitamin D, Total 37.5 ng/mL (30-100)
[2023-04-22 11:22] LABS: Free T4 (Free Thyroxine) 0.86 ng/dl (0.78-2.19)
[2023-04-22 11:33] LABS: Thyroid Stimulating Hormone 1.51 uIU/mL (0.465-4.68)
== END 2023-04-22 23:59 ==
LOC: LAB 10:15
PROVIDERS: PCP Physician Assistant; Visit Provider Physician Assistant
DX: E78.5 Hyperlipidemia, unspecified (principal); R53.83 Other fatigue; K59.00 Constipation, unspecified; E03.9 Hypothyroidism, unspecified; E55.9 Vitamin D deficiency, unspecified
CPT/HCPCS: 36415; 80053; 80061; 82306; 84439; 84443; 85025

== ENCOUNTER 2023-09-09 10:38 | Outpatient (CLI) | payer MEDICARE, SELFPAY ==
[2023-09-09 11:22] LABS: Basophils # 0.1 K/mm3 (0-0.2); Basophils % 1.4 % (0.1-2.0); Eosinophils # 0.5 K/mm3 (0.0-0.4); Eosinophils % 7.3 % (0.1-12.0); Hematocrit 42.1 % (42.0-52.0); Hemoglobin 13.9 g/dL (14.1-18.0); Lymphocytes % 29.2 % (10-50); Mean Corpuscular HGB Conc 33.1 g/dL (31.8-35.4); Mean Corpuscular Hemoglobin 32.6 pg (27.0-31.2); Mean Corpuscular Volume 98.4 fl (80-94); Monocytes # 0.5 K/mm3 (0.1-1.0); Neutrophils # 3.6 K/mm3 (1.8-7.8); Neutrophils % 54.1 % (37.0-80.0); Platelet Count 406 K/mm3 (142-424); Red Blood Count 4.27 M/mm3 (4.60-6.20); Red Cell Distribution Width 15.2 % (11.5-17.5); White Blood Count 6.7 K/mm3 (4.8-10.8)
[2023-09-09 11:43] LABS: Alanine Aminotransferase 25 U/L (12-78); Albumin Level 3.9 g/dl (3.5-5.0); Albumin/Globulin Ratio 1.6 (1.1-1.8); Alkaline Phosphatase 80 U/L (38-126); Anion Gap 9.1 mEq/L (5-15); Aspartate Amino Transferase 30 U/L (17-59); Blood Urea Nitrogen 16 mg/dl (9-20); Calcium 9.9 mg/dl (8.4-10.2); Carbon Dioxide 30 mmol/L (22.0-30.0); Chloride 105 mmol/L (98-107); Chol/HDL Ratio 3.7 (1-3.5); Cholesterol 183 mg/dl (140-200); Estimated Glomerular Filt Rate 60 ml/min (>60); GFR (African American) 72 ML/MIN (>60); Globulin 2.4 g/dL (1.3-3.2); Glucose 101 mg/dl (74-100); HDL Cholesterol 49 mg/dl (40-60); Potassium 4.1 mmoL/L (3.5-5.1); Sodium 140 mmol/L (136-145); Total Protein,Serum 6.3 g/dl (6.3-8.2); Triglycerides 104 mg/dl (30-150); VLDL Cholesterol 21 mg/dL (0-40)
[2023-09-09 11:55] LABS: Direct LDL Cholesterol 103.44 mg/dL (100-129)
[2023-09-09 12:01] LABS: 25-OH Vitamin D, Total 45.9 ng/mL (30-100)
[2023-09-09 12:15] LABS: Prostate Specific Ag Screen 3.2 ng/ml (0.0-4.0); Thyroid Stimulating Hormone 1.68 uIU/mL (0.465-4.68)
[2023-09-09 12:51] LABS: Vitamin B12 635 pg/mL (239-931)
[2023-09-09 13:24] LABS: Folate > 20.00 ng/mL
== END 2023-09-09 23:59 | disposition home or self-care (01) ==
LOC: LAB 10:40
PROVIDERS: PCP Physician Assistant; Visit Provider Physician Assistant
DX: Z12.5 Encounter for screening for malignant neoplasm of prostate (principal); E55.9 Vitamin D deficiency, unspecified; I10 Essential (primary) hypertension; M05.79 Rheumatoid arthritis with rheumatoid factor of multiple sites without organ or systems involvement; Z68.23 Body mass index [BMI] 23.0-23.9, adult; D51.9 Vitamin B12 deficiency anemia, unspecified; D52.9 Folate deficiency anemia, unspecified
CPT/HCPCS: 36415; 80050; 80053; 80061; 82306; 82607; 82746; 84443; 85025; G0103

== ENCOUNTER 2024-01-29 10:10 | Outpatient (CLI) | payer MEDICARE, SELFPAY ==
[2024-01-29 10:30] LABS: Basophils # 0.1 K/mm3 (0-0.2); Eosinophils # 0.4 K/mm3 (0.0-0.4); Hematocrit 41.5 % (42.0-52.0); Hemoglobin 14.4 g/dL (14.1-18.0); Lymphocytes # 1.9 K/mm3 (0.7-4.5); Lymphocytes % 31.2 % (10-50); Mean Corpuscular HGB Conc 34.6 g/dL (31.8-35.4); Mean Corpuscular Hemoglobin 32.1 pg (27.0-31.2); Mean Corpuscular Volume 92.8 fl (80-94); Mean Platelet Volume 7.4 fl (7.4-10.4); Monocytes # 0.3 K/mm3 (0.1-1.0); Monocytes % 5.1 % (1.7-9.3); Neutrophils # 3.4 K/mm3 (1.8-7.8); Neutrophils % 54.6 % (37.0-80.0); Platelet Count 444 K/mm3 (142-424); Red Blood Count 4.48 M/mm3 (4.60-6.20); Red Cell Distribution Width 14.2 % (11.5-17.5); White Blood Count 6.2 K/mm3 (4.8-10.8)
[2024-01-29 11:09] LABS: Albumin Level 3.9 g/dl (3.5-5.0); Chloride 106 mmol/L (98-107); Sodium 139 mmol/L (136-145)
[2024-01-29 11:10] LABS: Potassium 4.4 mmoL/L (3.5-5.1)
[2024-01-29 11:12] LABS: Alanine Aminotransferase 28 U/L (12-78); Albumin/Globulin Ratio 1.7 (1.1-1.8); Alkaline Phosphatase 97 U/L (38-126); Anion Gap 7.4 mEq/L (5-15); Aspartate Amino Transferase 43 U/L (17-59); Bilirubin,Total 1.3 mg/dl (0.2-1.3); Blood Urea Nitrogen 16 mg/dl (9-20); Carbon Dioxide 30 mmol/L (22.0-30.0); Cholesterol 161 mg/dl (140-200); Estimated Glomerular Filt Rate 54 ml/min (>60); GFR (African American) 66 ML/MIN (>60); Globulin 2.3 g/dL (1.3-3.2); Total Protein,Serum 6.2 g/dl (6.3-8.2); Triglycerides 97 mg/dl (30-150); VLDL Cholesterol 19 mg/dL (0-40)
[2024-01-29 11:13] LABS: Calcium 9.3 mg/dl (8.4-10.2); Chol/HDL Ratio 3.6 (1-3.5); Glucose 105 mg/dl (74-100); HDL Cholesterol 45 mg/dl (40-60)
[2024-01-29 11:41] LABS: Prostate Specific Ag Screen 3.4 ng/ml (0.0-4.0)
[2024-01-29 11:42] LABS: Thyroid Stimulating Hormone 1.25 uIU/mL (0.465-4.68)
[2024-01-29 12:55] LABS: Vitamin B12 908 pg/mL (239-931)
[2024-01-29 12:56] LABS: Folate > 20.00 ng/mL
== END 2024-01-29 23:59 | disposition home or self-care (01) ==
LOC: LAB 10:14
PROVIDERS: PCP Physician Assistant; Visit Provider Physician Assistant
DX: M06.9 Rheumatoid arthritis, unspecified (principal); Z12.5 Encounter for screening for malignant neoplasm of prostate; E78.5 Hyperlipidemia, unspecified; Z68.23 Body mass index [BMI] 23.0-23.9, adult
CPT/HCPCS: 36415; 80053; 80061; 82607; 82746; 84443; 85025; G0103

== ENCOUNTER 2024-08-06 08:18 | Outpatient (CLI) | payer MEDICARE, SELFPAY ==
--- OUTSIDE RECORDS SUMMARY | 2024-08-06 08:22 | XMS_ITS | Data Portability ---
Author Organization [facility] Address [address] [place] [address] Assessment No assessment recorded. Plan of Treatment Reminders Order Date Submit Date Provider Last Modified By Organization Details Last Modified Time Details Appointments FOLLOW UP 2024 08:00A Simone Hicks PA-C Not available Not available Not available Lab urinalysi s, dipstick [address], [address], 07/30/2024 14:03:50 Referral None recorded. Procedures None recorded. Surgeries None recorded. Imaging None recorded. Medication Orders Zithromax Z-Sly 250 mg tablet 2024 025 [facility], [address] [place] [address], [id number], 07/30/2024 11:43:17 prednison e 20 mg tablet 2024 025 [facility], [address] [place] [address], [id number], 07/30/2024 11:43:17 promethaz ine-DM 6.25 mg-15 mg/5 mL oral syrup 2024 025 [facility], [address] [place] [address], [id number], 07/30/2024 11:43:16 fluticaso ne propionat e 50 mcg/actua tion nasal spray,silver pension 2023 [facility], [address] [place] [address], [id number], 02/06/2024 13:05:10 meloxicam 15 mg tablet 2023 [facility], [address] [place] [address], [id number], 04/19/2024 15:55:59 sildenafi l 100 mg tablet 2023 [facility], [address] [place] [address], [id number], 02/03/2024 12:55:50 ezetimibe 10 mg-simvas tatin 40 mg tablet 2023 025 [facility], [address] [place] [address], [id number], 07/30/2024 11:43:19 pantopraz ole 40 mg tablet,de layed release 2023 024 [facility], [address] [place] [address], [id number], 03/12/2024 10:54:26 hydrochlo rothiazid e 12.5 mg tablet 2023 025 [facility], [address] [place] [address], [id number], 07/30/2024 11:43:18 aspirin 81 mg tablet,de layed release 2023 024 [facility], [address] [place] [address], [id number], 08/02/2024 16:37:41 folic acid 1 mg tablet 2023 024 [facility], [address] [place] [address], [id number], 02/06/2024 13:05:11 methotrex ate sodium 2.5 mg tablet 2023 024 [facility], [address] [place] [address], [id number], 03/12/2024 10:54:27 Patient TargetsNo targets recorded. Patient Instructions Encounter Date Encounter Id Patient Instructions Last Modified By Organization Details Last Modified Time 02/03/2024 [id number] allergies: care instructions [email or web address] Not available 02/03/2024 11:55:42 arthritis: care instructions [email or web address] Not available 02/03/2024 11:55:41 high cholesterol : care instructions [id number] Not available 02/03/2024 11:55:42 sleep apnea: car e instructions [id number] Not available 02/03/2024 14:05:04 high blood pressure: care instructions [email or web address] Not available 02/03/2024 11:55:42 learning about high blood pressure [email or web address] Not available 02/03/2024 11:55:42 Rheumatoid Arthritis (RA): Care Instructions Not available 02/03/2024 11:55:42 Discussed lab results from [facility] [email or web address] Not available 02/03/2024 14:03:15 04/26/2024 [id number] sleep apnea: car e instructions [email or web address] Not available 04/26/2024 16:35:54 Rheumatoid Arthritis (RA): Care Instructions [email or web address] Not available 04/26/2024 16:35:29 Reason for Referral None Reported. Results Created Date Observation Date Name Description Value Unit Range Abnormal Flag Note LastModifiedBy Organization Detail LastModifiedTime 07/31/1907/30/2024 urina lysis , dipst ick Leukocytes Negati ve Not Available [address], [place], [address], 07/30/2024 11:25:17 07/31/19 25 07/30/2024 urina lysis , dipst ick Nitrite negati ve Not Available [address], [address], 07/30/2024 11:25:17 07/31/19 25 07/30/2024 urina lysis , dipst ick Urobilinogen .2 Not Available [address] [facility], [place], [address], 07/30/2024 11:25:17 07/31/19 25 07/30/2024 urina lysis , dipst ick Protein 30 Not Available [address], [place], [address], 07/30/2024 11:25:17 07/31/19 25 07/30/2024 urina lysis , dipst ick pH 5.5 Not Available [address], [place], [address], 07/30/2024 11:25:17 07/31/19 25 07/30/2024 urina lysis , dipst ick Blood Negati ve Not Available [address], [place], [address], 07/30/2024 11:25:17 07/31/19 25 07/30/2024 urina lysis , dipst ick Specific [place] 1.030 Not Available [address], [place], [address], 07/30/2024 11:25:17 07/31/19 25 07/30/2024 urina lysis , dipst ick Ketone Negati ve Not Available [address], [address], 07/30/2024 11:25:17 07/31/19 25 07/30/2024 urina lysis , dipst ick Bilirubin Small Not Available [address], [place], [address], 07/30/2024 11:25:17 07/31/19 25 07/30/2024 urina lysis , dipst ick Glucose Negati ve Not Available [address], [place], [address], 07/30/2024 11:25:17 07/31/19 25 07/30/2024 urina lysis , dipst ick Appearance Clear Not Available [address], [address], 07/30/2024 11:25:17 07/31/19 25 07/30/2024 urina lysis , dipst ick Color Dark Yellow Not Available [address], [address], 07/30/2024 11:25:17 Result Notes None recorded. Problems Name Problem SNOMED Code Status Onset Date Resolution Date Notes Provider Name and Address Organization Details Recorded Time Chiqui esparza vidya daniel 32708417 Active 2023 MILEY Barker [address] [place] [address], [address] , [employer] 11:50:16 Hyperlip idemia 05289136 Active 2023 MILEY Barker [address] [place] [address], [address] , [employer] 4 11:50:23 Allergic rhinitis 93371097 Active 2023 MILEY Barker [address] [place] [address], [address] , [employer] 4 11:50:28 Osteoart hritis 940042188 Active 2023 MILEY Barker [address] [place] [address], [address] , [place] [employer] 4 11:50:47 Erectile dysfunct ion 939146814 Active 2023 MILEY Barker [address] [place] [address], [address] [place] [address] , [employer] 4 11:50:52 Obstruct sherwin sleep apnea syndrome 56756741 Active 2023 MILEY aBrker [address] [place] [address], [address] [place] [address] , [employer] 4 14:03:21 Atypical pneumoni a 147456212 Active 2024 MILEY Barker [address] [place] [address], [address] [place] [address] , [employer] 5 14:39:51 Cough 52775240 Active 2024 MILEY Barker [address] [place] [address], [address] [place] [address] , [employer] 5 16:47:09 Acute prostati tis 93891271 Active 2024 MILEY Barker [address] [place] [address], [address] [place] [address] , [employer] 5 14:04:25 Cytotoxi c cerebral edema 975177235 Active 2024 MILEY Barker [address] [place] [address], [address] [place] [address] , [employer] 5 14:04:31 Mixed hyperlip idemia 569817894 Active 2017 Problem Code: E78.2; Problem Code Type: ICD-10; Not Available [employer] 2 21:10:34 Rheumato id arthriti s 86095276 Active 2017 Problem Code: M06.9; Problem Code Type: ICD-10; Not Available [facility] 2 21:10:34 Pain of intercos koki space 885333639 Completed 201705/05/2017 Problem Code: R07.82; Problem Code Type: ICD-10; Not Available [facility] 2 21:10:34 Screenin g for malignan t neoplasm of prostate Completed 201705/05/2017 Problem Code: Z12.5; Problem Code Type: ICD-10; Not Available [facility] 2 21:10:34 Gastroes ophageal reflux disease without esophagi tis 229746722 Active 2017 Not Available [facility] 2 21:10:34 Current drug user 592790815 Completed 201703/17/2017 Problem Code: Z79.899; Problem Code Type: ICD-10; Not Available [facility] 2 21:10:34 Screenin g for cancer Completed 201705/05/2017 Not Available [facility] 2 21:10:34 Chest pain 56230588 Completed 201705/05/2017 Problem Code: 786.59; Problem Code Type: ICD-9; Not Available [facility] 2 21:10:35 Gastroes ophageal reflux disease 770789423 Active 2017 Problem Code: 530.81; Problem Code Type: ICD-9; Not Available [facility] 21:10:35 Problem Notes None recorded. Procedures Surgical History Date Name Laterality Status Provider Name and Address Organization Details Recorded Time 03/06/19 18 Lwr xtr vasc stdy bilat completed Not Available [facility] 10/30/2021 22:56:05 Hernia Repair completed [employer] 02/03/2024 11:13:14 Gallbladder Surgery completed [employer]. 02/03/2024 11:13:14 Imaging Results None recorded. Procedure Notes None recorded. Medical Equipment None Reported. Allergies Allergen ID Allergen Name Allergen Category Reaction Reaction Severity Criticality Documentation Date Start Date Code Code System Note Provider Name and Address Organization Details Recorded Time 12040 simvastat in medicatio n rash moderate Not available 10/30/2021 [id number] RxNorm Not Available [facility] 22:57:00 Medications Name Sig Start Date Stop Date Status Note LastModified by Organization Details LastModified Time promethazin e-DM 6.25 mg-15 mg/5 mL oral syrup take FIVE ML by MOUTH every FOUR hours as needed FOR 10 DAYS FOR cough 07/30 completed Not Available Not Available Not Available azithromyci n 250 mg tablet TAKE 2 TABLETS BY MOUTH ON DAY 1, THEN TAKE 1 TABLET DAILY ON DAYS 2-5 07/30 completed Not Available Not Available Not Available benzonatate 200 mg capsule TAKE ONE CAPSULE BY MOUTH THREE TIMES DAILY NEEDED FOR 10 DAYS FOR COUGH 07/30 completed Not Available Not Available Not Available meloxicam 15 mg tablet TAKE ONE TABLET BY MOUTH EVERY DAY active Not Available Not Available No t Available prednisone 20 mg tablet TAKE ONE TABLET BY MOUTH TWICE DAILY FOR 5 DAYS 07/30 completed Not Available Not Available Not Available aspirin 81 mg tablet,curt yed release Take 1 tablet(s) by mouth [facility] 2023 active Not Available Not Available Not Avai lable sildenafil 100 mg tablet TAKE ONE TABLET BY MOUTH DAILY NEEDED FOR sexual activity active Not Available Not Available No t Available simvastatin 40 mg tablet Take 1 tablet(s) by mouth daily 05/10 completed Not Available Not Available Not Available methotrexat e sodium 2.5 mg tablet TAKE 5 TABLETS BY MOUTH ONE TIME EACH WEEK active Not Available Not Available No t Available pantoprazol e 40 mg tablet,curt yed release TAKE ONE TABLET BY MOUTH DAILY active Not Available Not Available No t Available Cipro 500 mg tablet Take 1 tablet every 12 hours by oral route for 14 days. 2024 active Not Available Not Available Not Avai lable folic acid 1 mg tablet TAKE ONE TABLET BY MOUTH DAILY active Not Available Not Available No t Available losartan 50 mg-hydrochl orothiazide 12.5 mg tablet TAKE ONE TABLET BY MOUTH EVERY DAY as directed, FOR high blood pressure 2024 active Not Available Not Available Not Avai lable fluticasone propionate 50 mcg/actuati on nasal spray,suspe nsion [place] 1 spray every day by intranasa l route as directed for 90 days, for allergies . active Not Available Not Available No t Available ezetimibe 10 mg-simvasta tin 10 mg tablet TAKE 1 TABLET BY MOUTH ONCE DAILY 04/26 completed Not Available Not Available Not Available ezetimibe 10 mg-simvasta tin 40 mg tablet Take 1 tablet every day by oral route as directed for 90 days, for high cholester ol. 07/30 completed Not Available Not Available Not Available hydrochloro thiazide 12.5 mg tablet Take 1 tablet every day by oral route as directed for 90 days, for blood pressure. 07/30 completed Not Available Not Available Not Available Centrum Silver Ultra Men's 300 mcg-60 mcg-600 mcg-300 mcg tablet Take 1 tablet(s) by mouth daily with food. 2017 active Not Available Not Available Not Avai lable Vitals Date Recorded Body height Body mass index (BMI) Body weight Heart rate Oxygen saturation Oxygen saturation in Arterial blood by Pulse oximetry Body temperature Systolic blood pressure Diastolic blood pressure Systolic blood pressure Diastolic blood pressure Systolic blood pressure Diastolic blood pressure Provider Name and Address Organization Details Last Updated DateTime 5 167.64 cm 23.3 kg/m2 72693.7 4 g 64 /min 95 % 95 % 98.3 [degF] 182 mm[Hg] 94 mm[Hg] 166 mm[Hg] 88 mm[Hg] 160 mm[Hg] 86 mm[Hg] [employer] 5 14:57:18 Date Recorded Body height Body mass index (BMI) Body weight Oxygen saturation Oxygen saturation in Arterial blood by Pulse oximetry Heart rate Body temperature Systolic blood pressure Diastolic blood pressure Systolic blood pressure Diastolic blood pressure Provider Name and Address Organization Details Last Updated DateTime 5 167.64 cm 23.6 kg/m2 03430.2 g 97 % 97 % 60 /min 98.1 [degF] 146 mm[Hg] 80 mm[Hg] 146 mm[Hg] 76 mm[Hg] [employer] 5 11:27:43 Date Recorded Body weight Body mass index (BMI) Body height Oxygen saturation Oxygen saturation in Arterial blood by Pulse oximetry Heart rate Systolic blood pressure Diastolic blood pressure Systolic blood pressure Diastolic blood pressure Systolic blood pressure Diastolic blood pressure Provider Name and Address Organization Details Last Updated DateTime 4 10017.8 g 23.8 kg/m2 167.64 cm 96 % 96 % 62 /min 159 mm[Hg] 88 mm[Hg] 166 mm[Hg] 82 mm[Hg] 156 mm[Hg] 80 mm[Hg] [employer]anae [employer] 11:42:35 Social History Question Answer Notes LastModified by Organizat ion Details LastModified Time Tobacco Smoking Status Never Smoker Janae donahue, [employer] 02/03/2024 11:13:14 Do You Have An Advance Directive? No Information not available 02/03/2024 Is Your Home Air Conditioned? Yes Information not available 02/03/2024 Do You Wear A Helmet When Biking? Yes Information not available 02/03/2024 Are You Blind Or Do You Have Difficulty Seeing? No Information not available 02/03/2024 What Is Your Level Of Caffeine Consumption? Moderate Information not available 02/03/2024 What Type Of Mapper Do You Use? None Information not available 02/03/2024 Have You Been To An Area Known To Be High Risk For COVID-19? No Information not available 02/03/2024 Are You Deaf Or Do You Have Serious Difficulty Hearing? No Information not available 02/03/2024 What Type Of Diet Are You Following? REGULAR Information not available 02/03/2024 What Is The Highest Grade Or Level Of School You Have Completed Or The Highest Degree You Have Received? [id number] Information not available 02/03/2024 Who Is Your Employer? Self Employed Information not available 02/03/2024 How Many Days Of Moderate To Strenuous Exercise, Like A Brisk Walk, Did You Do In The Last 7 Days? 6 Information not available 02/03/2024 Have There Been Any Changes To Your Family Or Social Situation? No Information no t available 02/03/2024 Are There Any Guns Present In Your Home? No Information not available 02/03/2024 Which Of Your Hands Is Dominant? Right Information not available 02/03/2024 Do You Have A Medical Power Of In Service Education Teacher? No Information not available 02/03/2024 What Was The Date Of Your Most Recent Tobacco Screening? 07/30/2024 Information not available 07/30/2024 Do You Have Any Pets? Yes Information not available 02/03/2024 Do You Use Protection During Sex? No Information not available 02/03/2024 What Is Your Relationship Status? Information not available 02/03/2024 Have You Repeated Any Grades? No Information not available 02/03/2024 Do You Use Your Seat Belt Or Car Seat Routinely? Yes Information not available 02/03/2024 Are You Sexually Active? Yes Information not available 02/03/2024 Do You Have Any Siblings? Yes Information not available 02/03/2024 Do You Have Smoke And Carbon Monoxide Detectors In Your Home? Yes Information not available 02/03/2024 Are You Passively Exposed To Smoke? No Information no t available 02/03/2024 Are There Any Smokers In Your House? No Information not available 02/03/2024 Do You Participate In Social Media? No Information not available 02/03/2024 Do You Use Sunscreen Routinely? No Information not available 02/03/2024 Has Tobacco Cessation Counseling Been Provided? No Information not available 02/03/2024 Have You Recently Traveled Abroad? No Information not available 02/03/2024 Do You Have Difficulty Walking Or Climbing Stairs? No Information not available 02/03/2024 Are You Currently In School? No Information not available 02/03/2024 Do You Have Any Dietary Restrictions? No Information not available 02/03/2024 Sex: Male Functional Status Question Answer Note LastModified by Organizat ion Details LastModified Time Do you use any illicit or recreational drugs? No Information not available 02/03/2024 Do you or have you ever used any other forms of tobacco or nicotine? No Information not available 02/03/2024 What is your level of alcohol consumption? None Information not available 02/03/2024 Are you currently employed? Yes Information not available 02/03/2024 Do you have transportation difficulties? No Information not available 02/03/2024 Are you able to walk? YESWOREST Information not available 02/03/2024 Do you have difficulty doing errands alone? No Information not available 02/03/2024 Are you able to care for yourself? Yes Information not available 02/03/2024 Do you have difficulty dressing or bathing? No Information not available 02/03/2024 What is your exercise level? Heavy Information not available 02/03/2024 Mental Status Question Answer Note LastModified by Organizat ion Details LastModified Time Do you feel stressed (tense, restless, nervous, or anxious, or unable to sleep at night)? FI0025-5 Information not available 02/03/2024 Do you have difficulty concentrating, remembering or making decisions? No Information no t available 02/03/2024 Are you or have you been involved with bullying? No Information not available 02/03/2024 Family History Relationship Description Onset Age of this Age Resolved Age Notes LastModified by Organization Details LastModified Time Unspecified Relation Family history of malignant neoplasm Relati ve: ''; [email or web address] Not available 10/30/2021 22:59:10 Unspecified Relation Family history of Hypertension Relati ve: ''; [email or web address] Not available 10/30/2021 22:59:10 Notes:*Procedure Description : Documented family medical history in father*Relative: Father *Procedure Description: Documented family medical history in brother*Relative: Brother Medical History Condition Response Acid Reflux (GERD) Y Rheumatoid Arthritis Y High Cholesterol Y Hypertension Y Past Encounters Encounter ID Performer Location Encounter Start Date Encounter Closed Date Diagnosis/Indication Diagnosis SNOMED-CT Code Diagnosis ICD10 Code Diagnosis Note [id number] MILEY Barker [facility] [address] [place] [address] 02/03/2024 10:57:30 02/03/2024 11:42:42 Essential hypertension 03850258 I10 Stop Losartan - trial HCTZ alone Hyperlipidemia 97081612 E78.5 Allergic rhinitis 856627 04 J30.9 Rheumatoid arthritis 698 31542 M06.9 Gastroesop hageal reflux disease without esophagitis 755294417 K21.9 Osteoarthritis 030782071 M19.90 Erectile dysfunction 860 314864 F52.21 Obstructiv e sleep apnea syndrome 21866763 G47.33 Uses Cpap as directed [id number] MILEY Barker [facility] [address] [facility] [place] [address] 04/26/2024 14:13:16 04/26/2024 14:46:02 Atypical pneumonia 025896573 J18.9 Rheumatoid arthritis 698 20758 M06.9 Obstructiv e sleep apnea syndrome 89224848 G47.33 Uses Cpap as directed but machine is damaged - will see if he is eligible for a new machine [id number] MILEY Barker [facility] [address] [place] [address] 07/30/2024 11:09:25 07/30/2024 12:07:49 Physical examination 9286274 Z00.00 Health Concerns Section Related Observation LastModified by Organization Detai ls LastModified Time None Recorded Concern Status LastModified by Organization Details LastModified Time None Recorded Advance Directives Directive N: Payers Insurance Date Sequence Insurance Name Policy Number Policy Hickman Covered Member ID Hickman Member ID Guarantor Name 05/07/2024 SLIDING FEE SCHEDULE - DISCOUNT Ramiro Manoj Ailyn 07/29/2024 [place] [facility] Ramiro Robertson [id number] Ramiro Robertson 07/27/2024 1 [id number] (MEDICARE REPLACEMENT/AD VANTAGE - PPO) Ramiro Robertson [id number] Ramiro Robertson Notes Date Note Type Note Provider Name and Address Organization Details Recorded Time 02/03/2024 text/html Patient presents for follow up and results of labs. History of HTN, hyperlipidemia, RA, allergies. Has MARISOL - uses Cpap. Notes that his blood pressure has been low lately. It has gotten down to 90/30. He feels lightheaded and weak at times. Also has a cough at times. MILEY Barker [address] [place] [address], [address], [facility] [employer] 02/03/2024 14:05:07 04/26/2024 text/html Patient has had cough for 3 weeks. No fever. Cough mostly non productive. No vomiting or diarrhea. Has been short of breath, clammy at times.He states his Cpap started smelling like it burnt, the water had a bad odor and it no longer holds water all night but they won't replace it until November. MILEY Barker [address] [place], [address], [employer] 04/26/2024 16:36:51 07/30/2024 text/html CDL Physical MILEY Barker [address] [place], [address], [employer] 07/30/2024 16:03:30
--- OUTSIDE RECORDS SUMMARY | 2024-08-06 08:22 | XMS_ITS | Continuity of Care Document ---
Author Organization [place] - [facility] Address [address] [place] [address] Assessment No assessment recorded. Plan of Treatment Reminders Order Date Submit Date Provider Last Modified By Organization Details Last Modified Time Details Appointments FOLLOW UP 2024 08:00A Simone Hicks PA-C Not available Not available Not available Lab urinalysi s, dipstick 2024 025 [email or web address] [facility], [address] [place], [address], 07/30/2024 14:03:50 Referral None recorded. Procedures None recorded. Surgeries None recorded. Imaging None recorded. Medication Orders None recorded. Patient TargetsNo targets recorded. Patient InstructionsNo instructions recorded. Reason for Referral None Reported. Results Created Date Observation Date Name Description Value Unit Range Abnormal Flag Note LastModifiedBy Organization Detail LastModifiedTime 07/31/1907/30/2024 urina lysis , dipst ick Leukocytes Negati ve Not Available [facility] [address] [place], [place] [address] [place], [address], 07/30/2024 11:25:17 07/31/19 25 07/30/2024 urina lysis , dipst ick Nitrite negati ve Not Available [facility] [address] [place], [address], 07/30/2024 11:25:17 07/31/1907/30/2024 urina lysis , dipst ick Urobilinogen .2 Not Available [address] [facility], [place], [address], 07/30/2024 11:25:17 07/31/19 25 07/30/2024 urina lysis , dipst ick Protein 30 Not Available [address], [place], [address], 07/30/2024 11:25:17 07/31/19 25 07/30/2024 urina lysis , dipst ick pH 5.5 Not Available [address], [place], [address], 07/30/2024 11:25:17 07/31/19 25 07/30/2024 urina lysis , dipst ick Blood Negati ve Not Available [address], [place], [address], 07/30/2024 11:25:17 07/31/19 25 07/30/2024 urina lysis , dipst ick Specific [place] 1.030 Not Available [address], [place], [address], 07/30/2024 11:25:17 07/31/19 25 07/30/2024 urina lysis , dipst ick Ketone Negati ve Not Available [address], [place], [address], 07/30/2024 11:25:17 07/31/19 25 07/30/2024 urina lysis , dipst ick Bilirubin Small Not Available [address], [place], [address], 07/30/2024 11:25:17 07/31/19 25 07/30/2024 urina lysis , dipst ick Glucose Negati ve Not Available [address], [place], [address], 07/30/2024 11:25:17 07/31/19 25 07/30/2024 urina lysis , dipst ick Appearance Clear Not Available [address], [address], 07/30/2024 11:25:17 07/31/19 25 07/30/2024 urina lysis , dipst ick Color Dark Yellow Not Available [address], [address], 07/30/2024 11:25:17 Result Notes None recorded. Problems Name Problem SNOMED Code Status Onset Date Resolution Date Notes Provider Name and Address Organization Details Recorded Time Chiqui mckeonen daniel 32622709 Active 2023 MILEY Barker [address] [place] [address], [address] , [employer] 11:50:16 Hyperlip idemia 25709749 Active 2023 MILEY Barker [address] [place] [address], [address] , [employer] 4 11:50:23 Allergic rhinitis 31331881 Active 2023 MILEY Barker [address] [place] [address], [address] , [employer] 4 11:50:28 Osteoart hritis 867302373 Active 2023 MILEY Barker [address] [place] [address], [address] , [employer] 11:50:47 Erectile dysfunct ion 094834924 Active 2023 MILEY Bakrer [address] [place] [address], [address] [place] [address] , [employer] 4 11:50:52 Obstruct sherwin sleep apnea syndrome 80929908 Active 2023 MILEY Barker [address] [place] [address], [address] [place] [address] , [employer] 4 14:03:21 Atypical pneumoni a 895594735 Active 2024 MILEY Barker [address] [place] [address], [address] [place] [address] , [employer] 5 14:39:51 Cough 22389735 Active 2024 MILEY Barker [address] [place] [address], [address] [place] [address] , [employer] 5 16:47:09 Acute prostati tis 47359375 Active 2024 MILEY Barker [address] [place] [address], [address] [place] [address] , [employer] 5 14:04:25 Cytotoxi c cerebral edema 336156689 Active 2024 MILEY Barker [address] [place] [address], [address] [place] [address] , [employer] 5 14:04:31 Mixed hyperlip idemia 650039855 Active 2017 Problem Code: E78.2; Problem Code Type: ICD-10; Not Available [facility] 2 21:10:34 Rheumato id arthriti s 47421300 Active 2017 Problem Code: M06.9; Problem Code Type: ICD-10; Not Available [facility] 2 21:10:34 Pain of intercos koki space 015536839 Completed 201705/05/2017 Problem Code: R07.82; Problem Code Type: ICD-10; Not Available [facility] 2 21:10:34 Screenin g for malignan t neoplasm of prostate Completed 201705/05/2017 Problem Code: Z12.5; Problem Code Type: ICD-10; Not Available [facility] 21:10:34 Gastroes ophageal reflux disease without esophagi tis 921867744 Active 2017 Not Available [facility] 21:10:34 Current drug user 989244037 Completed 201703/17/2017 Problem Code: Z79.899; Problem Code Type: ICD-10; Not Available [facility] 21:10:34 Screenin g for cancer Completed 201705/05/2017 Not Available [facility] 21:10:34 Chest pain 16449925 Completed 201705/05/2017 Problem Code: 786.59; Problem Code Type: ICD-9; Not Available [facility] 21:10:35 Gastroes ophageal reflux disease 097582735 Active 2017 Problem Code: 530.81; Problem Code Type: ICD-9; Not Available [facility] 21:10:35 Problem Notes None recorded. Procedures Surgical History Date Name Laterality Status Provider Name and Address Organization Details Recorded Time 03/06/19 18 Lwr xtr vasc stdy bilat completed Not Available [facility] 10/30/2021 22:56:05 Hernia Repair completed [employer] 02/03/2024 11:13:14 Gallbladder Surgery completed [employer] 02/03/2024 11:13:14 Imaging Results None recorded. Procedure Notes None recorded. Medical Equipment None Reported. Allergies Allergen ID Allergen Name Allergen Category Reaction Reaction Severity Criticality Documentation Date Start Date Code Code System Note Provider Name and Address Organization Details Recorded Time 25162 simvastat in medicatio n rash moderate Not available 10/30/2021 30811 RxNorm Not Available [facility] 22:57:00 Medications Name Sig Start Date Stop [...] yed release Take 1 tablet(s) by mouth qam 2023 active Not Available Not Available Not [...] propionate 50 mcg/actuati on nasal spray,suspe nsion [address] spray every day by intranasa l [...] and Address Organization Details Last Updated DateTime 167.64 cm 23.6 kg/m2 52785.2 g 97 % 97 % 60 /min 98.1 [degF] 146 mm[Hg] 80 mm[Hg] 146 mm[Hg] 76 mm[Hg] [employer]. 11:27:43 Social History Question Answer Notes LastModified by Organizat ion Details LastModified Time Tobacco Smoking Status Never Smoker Janae Trulia. 02/03/2024 11:13:14 Do You Have An Advance [...] Information not available 02/03/2024 What Type Of Sonographer Do You Use? None Information not available [...] Or The Highest Degree You Have Received? [id number] Information not available 02/03/2024 Who Is Your [...] Do You Have A Medical Power Of Healthcare Network Consultant? No Information not available 02/03/2024 What Was [...] anxious, or unable to sleep at night)? [id number] Information not available 02/03/2024 Do you have [...] History Condition Response Acid Reflux (GERD) Y High Cholesterol Y Rheumatoid Arthritis Y Hypertension Y Past Encounters Encounter ID Performer Location Encounter Start Date Encounter Closed Date Diagnosis/Indication Diagnosis SNOMED-CT Code Diagnosis ICD10 Code Diagnosis Note [id number] MILEY Barker [facility] [address] [place] [address] 07/30/2024 11:09:25 07/30/2024 12:07:49 Physical examination 0602565 Z00.00 Health Concerns Section Related Observation LastModified by Organization Detai ls LastModified Time None Recorded Concern Status LastModified by Organization Details LastModified Time None Recorded Payers Encounter Date Sequence Insurance Name Policy Number Policy Hickman Covered Member ID Hickman Member ID Guarantor Name 07/30/2024 1 [employer] (MEDICARE REPLACEMENT/A DVANTAGE - PPO) Ramiro Robertson [id number] Ramiro Robertson Notes Date Note Type Note Provider Name and Address Organization Details Recorded Time 07/30/2024 text/html CDL Physical MILEY Barker [address] [place] [address], [place], [address], [facility] [employer] 07/30/2024 16:03:30
[2024-08-06 08:57] LABS: Basophils # 0.1 K/mm3 (0-0.2); Basophils % 1.1 % (0.1-2.0); Eosinophils # 0.5 Kmm3 (0.0-0.4); Hematocrit 40.7 % (42.0-52.0); Hemoglobin 13.5 g/dL (14.1-18.0); Immature Granulocytes # 0.01 10^3uL; Immature Granulocytes % 0.2 %; Lymphocytes % 32.2 % (10-50); Mean Corpuscular HGB Conc 33.2 g/dL (31.8-35.4); Mean Corpuscular Volume 93.3 fl (80-94); Mean Platelet Volume 9.8 fl (7.4-10.4); Monocytes # 0.5 K/mm3 (0.1-1.0); Monocytes % 8.3 % (1.7-9.3); Neutrophils # 3.1 K/mm3 (1.8-7.8); Neutrophils % 50.2 % (37.0-80.0); Nucleated Red Blood Cells # 0 10^3/uL; Nucleated Red Blood Cells % 0 %; Platelet Count 366 K/mm3 (142-424); Red Blood Count 4.36 M/mm3 (4.60-6.20); Red Cell Distribution Width 13.2 % (11.5-17.5); Red Cell Distribution Width-SD 44.6 fL; White Blood Count 6.3 K/mm3 (4.8-10.8)
[2024-08-06 09:21] LABS: Alanine Aminotransferase 34 U/L (12-78); Albumin Level 4.2 g/dl (3.5-5.0); Alkaline Phosphatase 65 U/L (38-126); Anion Gap 7.7 mEq/L (5-15); Aspartate Amino Transferase 35 U/L (17-59); Bilirubin,Total 1.3 mg/dl (0.2-1.3); Blood Urea Nitrogen 19 mg/dl (9-20); Calcium 9.6 mg/dl (8.4-10.2); Carbon Dioxide 32 mmol/L (22.0-30.0); Chloride 105 mmol/L (98-107); Chol/HDL Ratio 3.1 (1-3.5); Cholesterol 155 mg/dl (140-200); Estimated Glomerular Filt Rate 54 ml/min (>60); GFR (African American) 66 ML/MIN (>60); Globulin 2.1 g/dL (1.3-3.2); Glucose 104 mg/dl (74-100); HDL Cholesterol 50 mg/dl (40-60); Potassium 4.7 mmoL/L (3.5-5.1); Sodium 140 mmol/L (136-145); Total Protein,Serum 6.3 g/dl (6.3-8.2); Triglycerides 88 mg/dl (30-150); VLDL Cholesterol 18 mg/dL (0-40)
[2024-08-06 09:33] LABS: Direct LDL Cholesterol 73.71 mg/dL (100-129)
[2024-08-06 09:53] LABS: Prostate Specific Ag Screen 3.1 ng/ml (0.0-4.0); Thyroid Stimulating Hormone 1.22 uIU/mL (0.465-4.68)
[2024-08-06 10:12] LABS: Vitamin B12 952 pg/mL (239-931)
[2024-08-06 15:20] LABS: Folate > 20.00 ng/mL
== END 2024-08-06 23:59 | disposition home or self-care (01) ==
LOC: LAB 08:20
PROVIDERS: PCP Physician Assistant; Visit Provider Physician Assistant
DX: Z12.5 Encounter for screening for malignant neoplasm of prostate (principal); E78.2 Mixed hyperlipidemia; M06.9 Rheumatoid arthritis, unspecified
CPT/HCPCS: 36415; 80053; 80061; 82607; 82746; 84443; 85025; G0103